=== PATIENT | female | born 1990 | race Caucasian/White ===

== ENCOUNTER 2025-01-07 15:30 | Outpatient (CLI) | payer BC | END 2025-01-07 15:31 | disposition home or self-care (01) | LOC: SCSRAD 15:30 | PROVIDERS: ATTEND Internal Medicine Rheumatology | DX: M54.50 Low back pain, unspecified (principal); K51.319 Ulcerative (chronic) rectosigmoiditis with unspecified complications; M43.17 Spondylolisthesis, lumbosacral region; M41.9 Scoliosis, unspecified; M46.1 Sacroiliitis, not elsewhere classified | CPT/HCPCS: 72110 ==